=== PATIENT | male | born 1970 | race Two or more races ===

== ENCOUNTER 2019-10-03 12:28 | Emergency (ER) | payer OTHER ==
[~2019-10-03] VITALS: Ht 170.2 cm; Wt 127.0 kg
[~2019-10-03 12:28] MED LIST: NABUMETONE500 MG PO; PERCOCET 5/3251 TAB PO
== END 2019-10-03 20:46 | disposition home or self-care (01) ==
LOC: ER 12:28
DX: R42 Dizziness and giddiness (principal); M54.2 Cervicalgia

== ENCOUNTER 2021-05-15 10:35 | Outpatient (CLI) | payer OTHER | END 2021-05-15 10:50 | disposition home or self-care (01) | LOC: PPH VACUNA 10:35 | PROVIDERS: ATTEND Emergency Medicine Pediatric Emergency Medicine | DX: Z23 Encounter for immunization (principal) ==

== ENCOUNTER 2023-10-19 17:37 | Emergency (ER) | payer OTHER ==
[~2023-10-19] VITALS: Ht 172.7 cm; Wt 111.1 kg
[2023-10-19] MEDS ORDERED: DEXAMETHASONE SODIUM PHOSPHATE 4 MG/ML VIAL IM STA (19:40)
[2023-10-19] MEDS ORDERED: KETOROLAC TROMETHAMINE 30 MG VIAL IM STA (19:40)
== END 2023-10-19 22:42 | disposition home or self-care (01) ==
LOC: ER 17:38
DX: M17.12 Unilateral primary osteoarthritis, left knee (principal)

== ENCOUNTER 2023-10-26 07:24 | Outpatient (CLI) | payer OTHER | END 2023-10-26 13:42 | disposition home or self-care (01) | LOC: RAD 07:24 | PROVIDERS: ATTEND Orthopaedic Surgery | DX: M25.562 Pain in left knee (principal); M25.561 Pain in right knee | CPT/HCPCS: 73718 ==

== ENCOUNTER 2025-06-03 09:58 | Emergency (ER) | payer OTHER ==
[~2025-06-03] VITALS: Ht 180.3 cm; Wt 129.7 kg
[2025-06-03] MEDS ORDERED: RINGERS SOLUTION,LACTATED 1,000 ML IV ONE (11:00)
[2025-06-03 11:42] LABS: BASO % 0.4 % (0.1-1.2); EOS # 0.03 (0.04-0.54); EOS % 0.5 % (0.7-7.0); LYMPH # 1.33 (1.18-3.74); LYMPH % 23.5 % (19.3-53.1); MEAN PLATELET VOLUME 10.60 fl (9.4-12.4); MONO # 0.51 (0.24-0.82); MONO % 9.0 % (4.7-12.5); NEUT # 3.74 (1.56-6.13); NEUT % 66.2 % (34.0-71.1); RED CELL DISTRIBUTION WIDTH 12.4 % (11.6-14.4)
[2025-06-03 12:11] LABS: URINE APPEARANCE Clear; URINE BILIRRUBIN Negative (NEGATIVE); URINE BLOOD Negative; URINE COLOR Yellow; URINE LEUKOCYTE Trace; URINE NITRATE Negative; URINE PROTEIN 30 (NEGATIVE); URINE UROBILINOGEN 1.0 E.U./dl
[2025-06-03 12:20] LABS: URINE BACTERIA 94.7 uL (0.0-1933); URINE EPITHELIAL CELLS 9.9 uL (0.0-38.8); URINE RBC 23.7 uL (0.0-20.8); URINE WBC 145.9 uL (0.0-23.2)
[2025-06-03 12:21] LABS: URINE CAST 0.14 uL (0.0-1.40); URINE GLUCOSE 500 MG/DL (NEGATIVE); URINE KETONE 80 (NEGATIVE)
[2025-06-03 12:26] LABS: ALT/SGPT 22.0 U/L (12-78); AST/SGOT 11.0 U/L (15-37); BILIRUBIN TOTAL 0.59 mg/dL (0.3-1.2); BUN CREA RATIO 13.0 (7.0-25.0); CREATININE SERUM 0.54 mg/dL (0.70-1.30); GFR 157.96; GLOBULINA 2.9 G/DL (2.4-3.5); PHOSPHOKINASE CREATININE 37.0 U/L (39-308)
[2025-06-03 12:31] LABS: OSMOLALITY SERUM 287.0 MOSM/KG (275-295)
[2025-06-03 12:33] LABS: GLUCOSE FASTING 330.0 mg/dL (65-100)
[2025-06-03] MEDS ORDERED: KETOROLAC TROMETHAMINE 15 MG VIAL IV ONE (14:45)
[2025-06-03] MEDS ORDERED: ORPHENADRINE CITRATE 30 MG/ML AMPUL IM ONE (14:45)
[2025-06-03] MEDS ORDERED: NAPH,MB-DB/K PH,MBDB 1 PKT PACKET PO ONE (14:45)
== END 2025-06-03 17:28 | disposition home or self-care (01) ==
LOC: ER 09:59
PROVIDERS: General Practice
DX: R51.9 Headache, unspecified (principal); E11.65 Type 2 diabetes mellitus with hyperglycemia